=== PATIENT | female | born 1950 | race Caucasian/White ===

== ENCOUNTER → 2018-01-04 | Outpatient (CLI) | payer MEDICARE, BC ==
[~2018-01-04] MED LIST: BLOOD PRESSURE; COREG12.5 MG PO; COUMADIN 1MG TAB1 M1 PO; ENOXAPARIN40 MG/0.1 SUBQ; Hydrochlorothiazide PO; KLOR-CON 1010 MEQ PO; LASIX 20 MG TAB20 MG PO; METAMUCIL PAC1 UDPKT PO; MULTI VITAMIN1 EACH PO; OXYCODONE HCL 55 MG PO; VITAMINC500 PO
--- NOTE | 2018-01-04 12:30 | 2DMMODE ---
[place] [address] 2 D/M-MODE ECHOCARDIOGRAM Name: POLOED Room: [facility]#: [id number] Admission: 01/04/18 Attend Phys: Osmar Rhodes MD Discharge: Date of : 46 Date of Service: 01/04/18 1230 Report #: [id number] THIS REPORT FOR: //name// APPROVED REPORT Study performed: 01/04/2018 08:55:15 EXAM: Comprehensive 2D, Doppler, and color-flow Echocardiogram Patient Location: Out-Patient BSA: 2.03 HR: 90 bpm BP: 120/86 mmHg Other Information Study Quality: Fair Indications Cardiomyopathy 2D Dimensions LVEF(%): 46.74 (>50%) IVSd: 10.79 (7-11mm) LVOT Diam: 16.33 (18-24mm) LVDd: 38.32 mm PWd: 11.28 (7-11mm) Ascending Ao: 43.51 (22-36mm) LVDs: 29.53 (25-40mm) Aortic Root: 24.50 mm Perez's LVEF: 46.74 % Volumes Left Atrial Volume (Systole) LA ESV Index: 45.60 mL/m2 Aortic Valve AoV Peak Aubrey.: 1.38 m/s AO Peak Gr.: 7.60 mmHg LVOT Max P.48 mmHg AO Mean Gr.: 4.28 mmHg LVOT Mean P.23 mmHg LVOT Max V: 0.79 m/s AO V2 VTI: 29.44 cm LVOT Mean V: 0.51 m/s TOBY (VTI): 1.02 cm2 LVOT V1 VTI: 14.36 cm Mitral Valve E/A Ratio: 5.78 MV Decel. Time: 167.17 ms MV E Max Aubrey.: 0.90 m/[place] [address] 2 D/M-MODE ECHOCARDIOGRAM Name: POLOED Room: [facility]#: [id number] Admission: 01/04/18 Attend Phys: Osmar Rhodes MD Discharge: Date of : 46 Date of Service: 01/04/18 1230 Report #: [id number] MV PHT: 48.48 ms MVA (PHT): 4.54 cm2 TDI E/Lateral E': 11.25 E/Medial E': 12.86 Medial E' Aubrey.: 0.07 m/s Lateral E' Aubrey.: 0.08 m/s Pulmonary Valve PV Peak Aubrey.: 0.70 m/s PV Peak Gr.: 1.96 mmHg Tricuspid Valve RAP Estimate: 5.00 mmHg TR Peak Gr.: 35.57 mmHg RVSP: 40.57 mmHg PA Pressure: 40.57 mmHg Left Ventricle The left ventricle is normal size. There is normal LV segmental wall motion. There is normal left ventricular wall thickness. Left ventricular systolic function is borderline. LVEF is 50%. This study is not technically sufficient to allow evaluation of the LV diastolic function due to atrial fibrillation. Right Ventricle The right ventricle is normal size. The right ventricular systolic function is normal. Atria Left atrium is moderately dilated. Right atrium is moderately dilated. Aortic Valve The Aortic valve is sclerotic. Trace aortic regurgitation. No hemodynamically significant valvular aortic stenosis. Mitral Valve The mitral valve is normal in structure. Mild mitral regurgitation. No evidence of mitral valve stenosis. Tricuspid Valve The tricuspid valve is normal in structure. Moderate tricuspid regurgitation. Pulmonic Valve The pulmonary valve is normal in structure. Mild pulmonic [place] [address] 2 D/M-MODE ECHOCARDIOGRAM Name: ED CUELLAR Room: [facility]#: [id number] Admission: 01/04/18 Attend Phys: Osmar Rhodes MD Discharge: Date of : 46 Date of Service: 01/04/18 1230 Report #: [id number] Great Vessels The aortic root is normal in size. The ascending aorta is mildly dilated. IVC is normal in size and collapses with >50% inspiration Pericardium There is no pericardial effusion. <Conclusion> The left ventricle is normal size. There is normal left ventricular wall thickness. Left ventricular systolic function is borderline. LVEF is 50%. This study is not technically sufficient to allow evaluation of the LV diastolic function due to atrial fibrillation. The right ventricle is normal size. Left atrium is moderately dilated. Right atrium is moderately dilated. The Aortic valve is sclerotic. Trace aortic regurgitation. No hemodynamically significant valvular aortic stenosis. The mitral valve is normal in structure. Mild mitral regurgitation. The tricuspid valve is normal in structure. Moderate tricuspid regurgitation. IVC is normal in size and collapses with >50% inspiration There is normal LV segmental wall motion. <ELECTRONICALLY SIGNED> By: Aubrey Ferrer MD, FACC 01/04/18 1230 1230 1230 Aubrey Ferrer MD, FACC /INF
== END ==
LOC: M.CRD 08:41
DX: I08.1 Rheumatic disorders of both mitral and tricuspid valves (principal); I48.91 Unspecified atrial fibrillation